=== PATIENT | male | born 1965 | race Caucasian/White ===

== ENCOUNTER → 2024-07-29 | Day surgery (SDC) | payer OTHER ==
[~2024-07-29] MED LIST: Midazolam 1 MG/ML 2 ML SDV ONE; Morphine 8 MG, EPINEPHrine 0.3 MG, Cefuroxime 750 MG, Ketorolac 30 MG, Sodium Chloride ... PRN; Pregabalin 25 MG Cap PO ONE; Propofol 200 MG/20 ML SDV ONE; Ropivacaine 0.5% 5 MG/ML 30 ML SDV ONE; Sodium Chloride 0.9% 10 ML Syringe FLUSH PRN; Sodium Chloride 0.9% 10 ML Syringe FLUSH SCH; Tranexamic Acid 1,000 MG/10 ML Vial ONE; VANCOmycin 1 GM SDV ONE
[2024-07-29] MEDS: Lactated Ringers 1,000 ML IV SCH (06:40)
[2024-07-29 06:47] LABS: BASOPHILS ABSOLUTE AUTO 0.1 K/mm3 (0.0-0.2); BASOPHILS PERCENT AUTO 0.6 % (0.0-1.0); EOSINOPHILS ABSOLUTE AUTO 0.2 K/mm3 (0.0-0.4); EOSINOPHILS PERCENT AUTO 2.5 % (0.0-6.0); HEMATOCRIT 43.6 % (42.0-52.0); HEMOGLOBIN 15.6 gm/dl (14.0-18.0); IMMATURE GRAN ABSOLUTE AUTO 0.06 K/mm3 (0.00-0.05); IMMATURE GRAN PERCENT AUTO 0.6 % (0.0-0.4); LYMPHOCYTES ABSOLUTE AUTO 2.5 K/mm3 (1.0-4.8); LYMPHOCYTES PERCENT AUTO 26.2 % (24.0-44.0); MEAN CORPUSCULAR HEMOGLOBIN 32.1 pg (28.0-32.0); MEAN CORPUSCULAR HGB CONC 35.8 g/dl (32.0-36.0); MEAN CORPUSCULAR VOLUME 89.7 fl (83.0-99.0); MEAN PLATELET VOLUME 10.1 fl (9.4-12.4); MONOCYTES ABSOLUTE AUTO 1.2 K/mm3 (0.0-0.8); MONOCYTES PERCENT AUTO 11.9 % (0.0-8.0); NEUTROPHILS ABSOLUTE AUTO 5.7 K/mm3 (1.8-7.7); NEUTROPHILS PERCENT AUTO 58.2 % (41.0-71.0); PLATELET COUNT,PLT 270 K/mm3 (150-400); RED BLOOD CELL COUNT 4.86 M/mm3 (4.52-5.90)
[2024-07-29 07:06] LABS: INR 0.97; PROTHROMBIN TIME 10.3 SECONDS (9.7-12.0)
[2024-07-29] MEDS: Acetaminophen 325 MG Tab PO ONE (08:00)
== END | disposition home or self-care (01) ==
LOC: JD.SDS 06:15
PROVIDERS: ATTEND Orthopaedic Surgery
DX: Z53.8 Procedure and treatment not carried out for other reasons (principal)
CPT/HCPCS: 36415; 84550; 85025; 85610; 85652; 86140; 96360; A9270; J7120; J2250; J2704; J2795

== ENCOUNTER 2024-08-04 08:41 | Day surgery (SDC) | payer OTHER ==
[~2024-08-04 08:41] MED LIST changes: -Midazolam 1 MG/ML 2 ML SDV ONE; -Morphine 8 MG, EPINEPHrine 0.3 MG, Cefuroxime 750 MG, Ketorolac 30 MG, Sodium Chloride ... PRN; -Pregabalin 25 MG Cap PO ONE; -Propofol 200 MG/20 ML SDV ONE; -Ropivacaine 0.5% 5 MG/ML 30 ML SDV ONE; -Tranexamic Acid 1,000 MG/10 ML Vial ONE; -VANCOmycin 1 GM SDV ONE
[2024-08-04] MEDS: Lactated Ringers 1,000 ML IV SCH (08:50)
[2024-08-04 09:08] LABS: BASOPHILS ABSOLUTE AUTO 0.1 K/mm3 (0.0-0.2); BASOPHILS PERCENT AUTO 0.8 % (0.0-1.0); EOSINOPHILS ABSOLUTE AUTO 0.2 K/mm3 (0.0-0.4); EOSINOPHILS PERCENT AUTO 1.4 % (0.0-6.0); HEMATOCRIT 50.5 % (42.0-52.0); IMMATURE GRAN ABSOLUTE AUTO 0.89 K/mm3 (0.00-0.05); IMMATURE GRAN PERCENT AUTO 5.2 % (0.0-0.4); LYMPHOCYTES ABSOLUTE AUTO 4.7 K/mm3 (1.0-4.8); LYMPHOCYTES PERCENT AUTO 27.1 % (24.0-44.0); MEAN CORPUSCULAR HEMOGLOBIN 31.8 pg (28.0-32.0); MEAN CORPUSCULAR HGB CONC 34.9 g/dl (32.0-36.0); MEAN CORPUSCULAR VOLUME 91.2 fl (83.0-99.0); MEAN PLATELET VOLUME 9.9 fl (9.4-12.4); MONOCYTES ABSOLUTE AUTO 1.9 K/mm3 (0.0-0.8); MONOCYTES PERCENT AUTO 10.9 % (0.0-8.0); NEUTROPHILS ABSOLUTE AUTO 9.4 K/mm3 (1.8-7.7); NEUTROPHILS PERCENT AUTO 54.6 % (41.0-71.0); PLATELET COUNT,PLT 336 K/mm3 (150-400); RED BLOOD CELL COUNT 5.54 M/mm3 (4.52-5.90); WHITE BLOOD CELL COUNT,WBC 17.28 K/mm3 (3.9-11.3)
[2024-08-04] MEDS: Acetaminophen 325 MG Tab PO ONE (09:08)
[2024-08-04] MEDS: Pregabalin 25 MG Cap PO ONE (09:08)
[2024-08-04] MEDS ORDERED: Acetaminophen/HYDROcodone 325-5 MG Tab PO PRN (09:11)
[2024-08-04 09:21] LABS: HEMOGLOBIN 17.6 gm/dl (14.0-18.0)
[2024-08-04 09:31] LABS: SLIDE REVIEW ABNORMAL SMEAR
[2024-08-04] MEDS ORDERED: Lactated Ringers 1,000 ML IV ONE (10:00)
[2024-08-04] MEDS ORDERED: Lidocaine 2% 5 ML SDV ONE (10:15)
[2024-08-04] MEDS ORDERED: Dexamethasone 4 MG/ML 5 ML MDV ONE (10:15)
[2024-08-04] MEDS ORDERED: propofoL 500 MG/50 ML 50 ML ONE ×2 (10:15→12:35)
[2024-08-04] MEDS ORDERED: Ondansetron 4 MG/2 ML SDV ONE (10:15)
[2024-08-04] MEDS ORDERED: Propofol 200 MG/20 ML SDV ONE (10:15)
[2024-08-04] MEDS ORDERED: fentaNYL 100 MCG/2 ML SDV ONE (10:15)
[2024-08-04] MEDS ORDERED: Ketorolac 30 MG/ML SDV ONE (10:15)
[2024-08-04] MEDS ORDERED: Midazolam 1 MG/ML 2 ML SDV ONE (10:16)
[2024-08-04] MEDS ORDERED: Ropivacaine 0.5% 5 MG/ML 30 ML SDV ONE (10:32)
[2024-08-04] MEDS ORDERED: EPINEPHrine 1 MG/ML SDV ONE (10:32)
[2024-08-04] MEDS ORDERED: Phenylephrine 1% 10 MG/ML SDV ONE ×3 (11:53→13:16)
[2024-08-04] MEDS ORDERED: ceFAZolin 2 GM Vial ONE (11:57)
[2024-08-04] MEDS ORDERED: Ondansetron 4 MG/2 ML SDV IVPUSH PRN (12:45)
[2024-08-04] MEDS ORDERED: HYDROmorphone 0.5 MG/0.5 ML Syringe IVPUSH PRN (12:45)
[2024-08-04] MEDS ORDERED: fentaNYL 100 MCG/2 ML SDV IVPUSH PRN (12:45)
[2024-08-04] MEDS: Morphine 8 MG, EPINEPHrine 0.3 MG, Cefuroxime 750 MG, Ketorolac 30 MG, Sodium Chloride ... PRN (12:50)
[2024-08-04] MEDS: VANCOmycin 1 GM SDV ONE (12:55)
[2024-08-04] MEDS: Tranexamic Acid 1,000 MG/10 ML Vial ONE (12:55)
== END 2024-08-04 16:35 | disposition home or self-care (01) ==
LOC: JD.SDS 08:41
PROVIDERS: ATTEND Orthopaedic Surgery
DX: M17.11 Unilateral primary osteoarthritis, right knee (principal); I10 Essential (primary) hypertension; E78.2 Mixed hyperlipidemia; J45.909 Unspecified asthma, uncomplicated; Z79.899 Other long term (current) drug therapy; Z88.5 Allergy status to narcotic agent
CPT/HCPCS: 0055T; 27447; 36415; 73560; 85025; 86140; 97116; 97161; A9270; C1713; C1776; J0171; J0690; J0697; J1100; J1885; J2003; J2250; J2272; J2371; J2405; J2704; J2795; J7120; 01400; 64447; J3010; J3490